=== PATIENT | male | born 1995 | race Native Hawaiian/Other Pacific Islander ===

== ENCOUNTER 2018-01-15 16:28 | Emergency (ER) | payer SELFPAY ==
[2018-01-15 17:08] VITALS: BP 123/83
== END 2018-01-15 22:17 | disposition left against medical advice (07) ==
LOC: EDSEX → ED 16:28
DX: M79.672 Pain in left foot (principal); Z53.21 Procedure and treatment not carried out due to patient leaving prior to being seen by health care provider